=== PATIENT | male | born 1990 | race African-American/Black ===

== ENCOUNTER 2016-12-22 22:49 | Emergency (ER) | payer MEDICARE, OTHER ==
[~2016-12-22] VITALS: Ht 165.1 cm; Wt 88.6 kg
[2016-12-22] MEDS ORDERED: PROP20 PO (23:39)
[2016-12-22] MEDS ORDERED: METHI5 PO (23:39)
[2016-12-23 00:47] LABS: BASOPHILS % (AUTO) 0.1 % (0.0-2.0); EOSINOPHILS # (AUTO) 0.14 K/uL (0.00-0.70); EOSINOPHILS % (AUTO) 2.15 % (1.0-6.0); HEMATOCRIT 41.3 % (41-53); HEMOGLOBIN 14.1 g/dL (13.5-17.5); LYMPHOCYTES # (AUTO) 1.3 K/uL (1.0-4.8); LYMPHOCYTES % (AUTO) 19.8 % (22.0-44.0); MEAN CORPUSCULAR HEMOGLOBIN 29.8 pg (26.0-34.0); MEAN CORPUSCULAR HGB CONC 34.2 G/dL (31.0-37.0); MEAN CORPUSCULAR VOLUME 87 fL (80-100); MONOCYTES # (AUTO) 0.2 K/uL (0.1-1.0); MONOCYTES % (AUTO) 3.8 % (2.0-9.0); NEUTROPHILS # (AUTO) 4.8 K/uL (1.8-7.7); NEUTROPHILS % (AUTO) 74.3 % (40.0-70.0); PLATELET COUNT (AUTO) 151 K/uL (150-450); RED BLOOD CELL COUNT(AUTO) 4.74 MIL/uL (4.50-5.90); RED CELL DISTRIBUTION WIDTH 15.3 % (11.5-14.5); WHITE BLOOD COUNT (AUTO) 6.5 K/uL (4.5-11.0)
[2016-12-23 00:56] LABS: ANION GAP 8 mmol/L (8-16); CALCIUM, TOTAL 9.1 mg/dL (8.8-10.5); CARBON DIOXIDE 28 mmol/L (22-29); CHLORIDE 103 mmol/L (98-107); CREATININE 0.78 mg/dL (0.60-1.30); GLOMERULAR FILTR. RATE CALC > 60 mL/min (>60); POTASSIUM 3.6 mmol/L (3.5-5.1); SODIUM SERUM 139 mmol/L (136-145); UREA NITROGEN, BLOOD 9 mg/dL (7-18)
[2016-12-23 00:57] LABS: ADD UA MICROSCOPIC YES; APPEARANCE,URINE CLOUDY (CLEAR); GLUCOSE, URINE (UA) NEGATIVE (NEGATIVE); KETONES,URINE NEGATIVE (NEGATIVE); LEUKOCYTE ESTERASE ,URINE LARGE (NEGATIVE); OCCULT BLOOD,URINE LARGE (NEGATIVE); PROTEIN,URINE NEGATIVE (NEGATIVE)
[2016-12-23 01:01] LABS: ALANINE AMINOTRANSFERASE 21 U/L (12-78); ALBUMIN 4.4 g/dL (3.4-5.0); ASPARTATE AMINOTRANSFERASE 19 U/L (15-37); BILIRUBIN,TOTAL 4.6 mg/dL (0.1-1.0); TOTAL PROTEIN, SERUM 7.6 g/dL (6.4-8.2)
[2016-12-23 01:10] LABS: SQUAMOUS EPITHELIAL CELL,UR Few /LPF (None Seen); WBC,URINE 51-100 /HPF (0-5)
[2016-12-23] MEDS ORDERED: CefTRIAXone SODIUM 1 GM/VIAL IM ONE (01:45)
[2016-12-23] MEDS ORDERED: LIDOCAINE HCL/PF 1% 2 ML VIAL IM ONE (01:45)
[2016-12-23 01:46] VITALS: BP 154/99
== END 2016-12-23 02:09 | disposition home or self-care (01) ==
LOC: EMS 22:51
DX: N39.0 Urinary tract infection, site not specified (principal); I10 Essential (primary) hypertension; Z88.6 Allergy status to analgesic agent; Z88.0 Allergy status to penicillin
CPT/HCPCS: 36415; 80053; 81001; 83690; 85025; 87086; 96372; 99284; J0696; J3490

== ENCOUNTER 2017-01-19 18:47 | Emergency (ER) | payer MEDICARE, OTHER ==
[~2017-01-19] VITALS: Ht 167.6 cm; Wt 56.8 kg
[~2017-01-19 18:47] MED LIST: METHI5 PO; PROP20 PO
[2017-01-19] MEDS ORDERED: HYDROCODONE/ACETAMINOPHEN 5-325 MG TABLET PO ONE (20:45)
[2017-01-19 21:25] VITALS: BP 135/78
== END 2017-01-19 21:30 | disposition home or self-care (01) ==
LOC: EMS 18:50
DX: K04.7 Periapical abscess without sinus (principal); I10 Essential (primary) hypertension; Z88.0 Allergy status to penicillin; Z88.6 Allergy status to analgesic agent
CPT/HCPCS: 99283

== ENCOUNTER 2018-01-27 22:27 | Emergency (ER) | payer MEDICARE, OTHER ==
[~2018-01-27] VITALS: Ht 167.6 cm; Wt 72.7 kg
[~2018-01-27 22:27] MED LIST changes: -PROP20 PO; +PROP20TA18 PO
[2018-01-27] MEDS ORDERED: METO50 PO (22:48)
[2018-01-27] MEDS ORDERED: HYDR50CA10 PO (22:48)
[2018-01-27] MEDS ORDERED: ZOLP10TA7 PO (22:48)
[2018-01-27] MEDS ORDERED: PARO10TA89 PO (22:48)
[2018-01-27] MEDS ORDERED: LISI-660 PO (22:48)
[2018-01-27] MEDS ORDERED: PANT40TA25 PO (22:48)
[2018-01-27] MEDS ORDERED: APIX5TAB PO (22:48)
[2018-01-27] MEDS ORDERED: DILTIAZEM HCL 5 MG/ML 5 ML VIAL IVP ONE (23:15)
[2018-01-27] MEDS ORDERED: SODIUM CHLORIDE 0.9% 1,000 ML IV ONE (23:15)
[2018-01-27 23:23] LABS: BASOPHILS % (AUTO) 1.3 % (0.0-2.0); EOSINOPHILS % (AUTO) 0.8 % (1.0-6.0); HEMATOCRIT 31.4 % (41-53); HEMOGLOBIN 11.2 g/dL (13.5-17.5); LYMPHOCYTES # (AUTO) 1.3 K/uL (1.0-4.8); LYMPHOCYTES % (AUTO) 30.5 % (22.0-44.0); MEAN CORPUSCULAR HEMOGLOBIN 30.4 pg (26.0-34.0); MEAN CORPUSCULAR HGB CONC 35.6 G/dL (31.0-37.0); MEAN CORPUSCULAR VOLUME 85 fL (80-100); MONOCYTES # (AUTO) 0.4 K/uL (0.1-1.0); MONOCYTES % (AUTO) 8.4 % (2.0-9.0); NEUTROPHILS # (AUTO) 2.6 K/uL (1.8-7.7); RED BLOOD CELL COUNT(AUTO) 3.68 MIL/uL (4.50-5.90); RED CELL DISTRIBUTION WIDTH 16.3 % (11.5-14.5)
[2018-01-27] MEDS ORDERED: ONDANSETRON HCL 4 MG/2 ML VIAL IVP ONE (23:30)
[2018-01-27] MEDS ORDERED: MORPHINE SULFATE 4 MG/ML SYRINGE IVP ONE (23:30)
[2018-01-27 23:31] LABS: ANION GAP 8 mmol/L (8-16); CALCIUM, TOTAL 8.8 mg/dL (8.8-10.5); CARBON DIOXIDE 27 mmol/L (22-29); CHLORIDE 106 mmol/L (98-107); CREATININE 0.65 mg/dL (0.60-1.30); GLOMERULAR FILTR. RATE CALC > 60 mL/min (>60); GLUCOSE,RANDOM 98 mg/dL (70-110); POTASSIUM 4.2 mmol/L (3.5-5.1); SODIUM SERUM 141 mmol/L (136-145); UREA NITROGEN, BLOOD 10 mg/dL (7-18)
[2018-01-27 23:37] LABS: ALANINE AMINOTRANSFERASE 86 U/L (12-78); ALBUMIN 3.4 g/dL (3.4-5.0); ALKALINE PHOSPHATASE 179 U/L (46-116); ASPARTATE AMINOTRANSFERASE 48 U/L (15-37); BILIRUBIN,TOTAL 5.3 mg/dL (0.1-1.0); TOTAL PROTEIN, SERUM 6.4 g/dL (6.4-8.2)
[2018-01-28] MEDS ORDERED: DILTIAZEM HCL 5 MG/ML 5 ML VIAL IVP ONE
[2018-01-28 00:04] LABS: PLATELET COUNT (AUTO) 90 K/uL (150-450)
[2018-01-28 00:05] LABS: PLATELET MORPHOLOGY COMMENT LARGE PLTS PRESENT
[2018-01-28] MEDS ORDERED: MORPHINE SULFATE 4 MG/ML SYRINGE IVP ONE (01:15)
[2018-01-28 01:49] LABS: AMPHET/METH SCREEN,URINE NEGATIVE (NEGATIVE); BARBITURATE SCREEN, URINE NEGATIVE (NEGATIVE); BENZODIAZEPINES SCREEN,URINE NEGATIVE (NEGATIVE); CANNABINOID SCREEN,URINE POSITIVE (NEGATIVE); COCAINE SCREEN,URINE NEGATIVE (NEGATIVE); METHADONE SCREEN, URINE NEGATIVE (NEGATIVE); OPIATE SCREEN,URINE NEGATIVE (NEGATIVE)
[2018-01-28 01:51] LABS: PHENCYCLIDINE SCREEN,URINE NEGATIVE (NEGATIVE)
[2018-01-28] MEDS ORDERED: LABETALOL HCL 5 MG/ML 20 ML VIAL IVP ONE (02:30)
[2018-01-28] MEDS ORDERED: ONDANSETRON HCL 4 MG/2 ML VIAL IVP ONE (02:45)
[2018-01-28] MEDS ORDERED: HYDROmorphone 2 MG/ML SYRINGE IVP ONE (04:00)
[2018-01-28 04:02] VITALS: BP 144/98
[2018-01-28] MEDS ORDERED: METOCLOPRAMIDE HCL 10 MG TABLET PO ONE (05:15)
== END 2018-01-28 05:43 | disposition home or self-care (01) ==
LOC: EMS 22:28
DX: I48.91 Unspecified atrial fibrillation (principal); I10 Essential (primary) hypertension; F12.90 Cannabis use, unspecified, uncomplicated; F17.210 Nicotine dependence, cigarettes, uncomplicated; Z88.0 Allergy status to penicillin; Z88.6 Allergy status to analgesic agent; Z88.8 Allergy status to other drugs, medicaments and biological substances
CPT/HCPCS: 36415; 71045; 80053; 80307; 84484; 85025; 93005; 96361; 96374; 96375; 96376; 99285; J1170; J2270 ×2; J2405 ×2; J3490 ×3; J7030

== ENCOUNTER 2019-07-22 17:51 | Emergency (ER) | payer MEDICARE, OTHER ==
[~2019-07-22] VITALS: Ht 167.6 cm; Wt 65.9 kg
[~2019-07-22 17:51] MED LIST changes: +APIX5TAB PO; +HYDR50CA9 PO; +LISI-660 PO; -METHI5 PO; +METO50 PO; +PANT40TA25 PO; +PARO10TA89 PO; -PROP20TA18 PO; +ZOLP10TA7 PO
[2019-07-22 20:30] LABS: BASOPHILS % (AUTO) 0.8 % (0.0-2.0); EOSINOPHILS % (AUTO) 1.6 % (1.0-6.0); HEMOGLOBIN 14.7 g/dL (13.5-17.5); LYMPHOCYTES # (AUTO) 1.9 K/uL (1.0-4.8); LYMPHOCYTES % (AUTO) 18.2 % (22.0-44.0); MEAN CORPUSCULAR HEMOGLOBIN 32.3 pg (26.0-34.0); MEAN CORPUSCULAR VOLUME 92 fL (80-100); MONOCYTES # (AUTO) 0.4 K/uL (0.1-1.0); MONOCYTES % (AUTO) 4.1 % (2.0-9.0); NEUTROPHILS # (AUTO) 8.1 K/uL (1.8-7.7); NEUTROPHILS % (AUTO) 75.3 % (40.0-70.0); PLATELET COUNT (AUTO) 128 K/uL (150-450); RED BLOOD CELL COUNT(AUTO) 4.56 MIL/uL (4.50-5.90); RED CELL DISTRIBUTION WIDTH 15.9 % (11.5-14.5)
[2019-07-22 20:41] LABS: ANION GAP 8 mmol/L (8-16); CALCIUM, TOTAL 9.3 mg/dL (8.8-10.5); CARBON DIOXIDE 30 mmol/L (22-29); CHLORIDE 107 mmol/L (98-107); CREATININE 0.93 mg/dL (0.60-1.30); GLOMERULAR FILTR. RATE CALC > 60 mL/min (>60); GLUCOSE,RANDOM 73 mg/dL (70-110); POTASSIUM 4.2 mmol/L (3.5-5.1); SODIUM SERUM 145 mmol/L (136-145); UREA NITROGEN, BLOOD 15 mg/dL (7-18)
[2019-07-22 20:50] LABS: ALANINE AMINOTRANSFERASE 23 U/L (12-78); ALBUMIN 3.9 g/dL (3.4-5.0); ALKALINE PHOSPHATASE 96 U/L (46-116); ASPARTATE AMINOTRANSFERASE 26 U/L (15-37); BILIRUBIN,TOTAL 1.5 mg/dL (0.1-1.0); LIPASE 209 U/L (73-393); TOTAL PROTEIN, SERUM 6.9 g/dL (6.4-8.2)
[2019-07-22 21:19] LABS: APPEARANCE,URINE CLOUDY (CLEAR); BILIRUBIN,URINE NEGATIVE (NEGATIVE); GLUCOSE, URINE (UA) NEGATIVE (NEGATIVE); KETONES,URINE NEGATIVE (NEGATIVE); LEUKOCYTE ESTERASE ,URINE NEGATIVE (NEGATIVE); NITRATE,URINE NEGATIVE (NEGATIVE); OCCULT BLOOD,URINE NEGATIVE (NEGATIVE); PH,URINE 6.5 (5.0-8.0); PROTEIN,URINE NEGATIVE (NEGATIVE)
[2019-07-22 21:22] LABS: B-TYPE NATRIURETIC PEPTIDE 14 pg/mL (0-100)
[2019-07-22 21:30] LABS: INR 1.1 (0.9-1.1); PROTHROMBIN TIME 10.9 SEC (9.4-11.6)
[2019-07-22 21:38] LABS: CREATINE KINASE, TOTAL ONLY 447 U/L (39-308)
[2019-07-22 21:58] VITALS: BP 143/80
== END 2019-07-22 22:17 | disposition home or self-care (01) ==
LOC: EMS 17:52
DX: J02.9 Acute pharyngitis, unspecified (principal); R51 Headache; I10 Essential (primary) hypertension; F17.210 Nicotine dependence, cigarettes, uncomplicated; F12.90 Cannabis use, unspecified, uncomplicated; Z98.890 Other specified postprocedural states; Z79.899 Other long term (current) drug therapy; Z88.0 Allergy status to penicillin; Z88.6 Allergy status to analgesic agent
CPT/HCPCS: 93005

== ENCOUNTER 2019-11-09 12:02 | Emergency (ER) | payer MEDICARE, OTHER ==
[~2019-11-09] VITALS: Ht 167.6 cm; Wt 59.1 kg
[~2019-11-09 12:02] MED LIST changes: -HYDR50CA9 PO; -PANT40TA25 PO; -PARO10TA89 PO
[2019-11-09] MEDS ORDERED: LEVO100 PO (12:19)
[2019-11-09 16:26] LABS: INFLUENZA TYPE A NEGATIVE FOR TYPE A (NEGATIVE); INFLUENZA TYPE B NEGATIVE FOR TYPE B (NEGATIVE)
[2019-11-09 16:44] VITALS: BP 130/77
== END 2019-11-09 16:57 | disposition home or self-care (01) ==
LOC: EMS 12:05
DX: B34.9 Viral infection, unspecified (principal); E03.9 Hypothyroidism, unspecified; I10 Essential (primary) hypertension; F12.90 Cannabis use, unspecified, uncomplicated; Z87.891 Personal history of nicotine dependence; Z98.890 Other specified postprocedural states; Z79.01 Long term (current) use of anticoagulants; Z88.6 Allergy status to analgesic agent; Z88.0 Allergy status to penicillin; Z88.8 Allergy status to other drugs, medicaments and biological substances
CPT/HCPCS: 87804

== ENCOUNTER 2019-12-12 16:08 | Emergency (ER) | payer MEDICARE, OTHER ==
[~2019-12-12] VITALS: Ht 167.6 cm; Wt 59.1 kg
[~2019-12-12 16:08] MED LIST changes: +LEVO100 PO; +ZOLP-281 PO; -ZOLP10TA7 PO
[2019-12-12] MEDS ORDERED: BENZOCAINE/MENTHOL LOZENGE PO ONE (17:00)
[2019-12-12] MEDS ORDERED: BENZONATATE 100 MG CAPSULE PO ONE (17:00)
[2019-12-12] MEDS ORDERED: ACETAMINOPHEN 500 MG TABLET PO ONE (17:00)
[2019-12-12 18:48] LABS: INFLUENZA TYPE A NEGATIVE FOR TYPE A (NEGATIVE); INFLUENZA TYPE B NEGATIVE FOR TYPE B (NEGATIVE)
[2019-12-12 19:39] VITALS: BP 147/64
== END 2019-12-12 19:52 | disposition home or self-care (01) ==
LOC: EMS 16:08
DX: J18.0 Bronchopneumonia, unspecified organism (principal); M79.10 Myalgia, unspecified site; I10 Essential (primary) hypertension; E03.9 Hypothyroidism, unspecified; F17.210 Nicotine dependence, cigarettes, uncomplicated; F12.90 Cannabis use, unspecified, uncomplicated; Z88.0 Allergy status to penicillin; Z88.6 Allergy status to analgesic agent; Z79.899 Other long term (current) drug therapy; Z03.818 Encounter for observation for suspected exposure to other biological agents ruled out
CPT/HCPCS: 87635; 87804; 99406